=== PATIENT | male | born 1980 | race Caucasian/White ===

== ENCOUNTER 2017-05-22 22:29 | Emergency (ER) | payer OTHER ==
[~2017-05-22] VITALS: Ht 193 cm; Wt 203.9 kg
[2017-05-23] MEDS ORDERED: FLEXERIL10 MG PO (00:14)
[2017-05-23] MEDS ORDERED: LIDODERM 5% P1 PATCH TD (00:14)
[2017-05-23] MEDS ORDERED: PERCOCET 5/31 TABLET PO (00:14)
[2017-05-23 00:57] VITALS: BP 138/65
== END 2017-05-23 00:59 | disposition home or self-care (01) ==
LOC: EME 22:29
DX: M54.5 Low back pain (principal); W01.0XXA Fall on same level from slipping, tripping and stumbling without subsequent striking against object, initial encounter; Y93.01 Activity, walking, marching and hiking
CPT/HCPCS: 72100; 99281; 99284; J7512